=== PATIENT | female | born 2000 | race Caucasian/White ===

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

== ENCOUNTER 2022-05-03 15:09 | Emergency (ER) | payer BC ==
--- NOTE | 2022-05-03 15:35 | ER ---
Nurse's Notes [facility] Name: Rica Moreno Age: 21 yrs Sex: Female : 2000 Arrival Date: 05/03/2022 Time: 15:11 Bed 7 Private MD: Diagnosis: Localization-related (focal) (partial) idiopathic epilepsy and epileptic syndromes with seizures of localized onset Presentation: 05/03 15:22 Chief complaint: Patient states: Had a seizure today around 1330. Pt reports having ld1 seizures her whole life but is not on medication. Coronavirus screen: At this time, the client does not indicate any symptoms associated with coronavirus-19. Ebola Screen: No symptoms or risks identified at this time. Initial Sepsis Screen: Does the patient meet any 2 criteria? No. Patient's initial sepsis screen is negative. Does the patient have a suspected source of infection? No. Patient's initial sepsis screen is negative. Risk Assessment: Do you want to hurt yourself or someone else? Patient reports no desire to harm self or others. Onset of symptoms was May 03, 2022. 15:22 Method Of Arrival: Ambulatory ld1 15:22 Acuity: JACKIE 3 ld1 Triage Assessment: 15:24 General: Appears in no apparent distress. comfortable, Behavior is calm, cooperative, ld1 appropriate for age. Pain: Denies pain. EENT: No signs and/or symptoms were reported regarding the EENT system. Neuro: Level of Consciousness is awake, alert, obeys commands, Oriented to person, place, time, situation, Seizure activity reported prior to arrival. Type of seizure: petit mal seizure. Cardiovascular: Capillary refill < 3 seconds Patient's skin is warm and dry. Respiratory: Airway is patent Respiratory effort is even, unlabored. 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 - Social history:: Smoking status: Reported history of juuling and/or vaping. Patient/guardian denies using alcohol. Screenin:57 Abuse screen: Denies threats or abuse. Denies injuries from another. Nutritional jh6 screening: No deficits noted. Tuberculosis screening: No symptoms or risk factors identified. Fall Risk Gait- Weak (10 pts.). Assessment: 15:54 General: Appears in no apparent distress. comfortable, Behavior is calm, cooperative. jh6 Pain: Denies pain. Neuro: No deficits noted. Level of Consciousness is awake, alert, obeys commands, Oriented to person, place, time, situation, Operators Teacher are equal bilaterally Moves all extremities. Gait is unsteady, Speech is normal, Facial symmetry appears normal, Pupils are PERRLA, Intact Babinski is positive Reports stated that she felt fuzzy and that she is having a seizure. reports that she has seen a neurologist before and that have done EEGs but have not been able to give answers for the "seizures like activity". Pt also reports that she had gotten off of all her psych medication 6mo ago and the episodes have decreased to once a week rather then every other day. . 16:53 Reassessment: Patient and/or family updated on plan of care and expected duration. Pain jh6 level reassessed. Patient is alert, oriented x 3, equal unlabored respirations, skin warm/dry/pink. Patient denies pain at this time. Patient states symptoms have improved. Vital Signs: 15:22 BP 128 / 84; Pulse 97; Resp 18; Temp 98.1(TE); Pulse Ox 99% on R/A; Weight 74.84 kg; ld1 Height 5 ft. 4 in. (162.56 cm); Pain 0/10; 16:54 BP 129 / 79; Pulse 81; Resp 17; Temp 97.6; Pulse Ox 100% ; Pain 0/10; jh6 15:22 Body Mass Index 28.32 (74.84 kg, 162.56 cm) ld1 [place] Coma Score: 15:24 Eye Response: spontaneous(4). Verbal Response: oriented(5). Motor Response: obeys ld1 commands(6). Total: 15. ED Course: 15:11 Patient arrived in ED. mr 15:24 Triage completed. ld1 15:24 Arm band placed on right wrist. ld1 15:28 [facility] Shafer [facility]C [facility] snw 15:28 Aubrey Alfonso MD is Attending Physician. snw 15:40 Placed in gown. Bed in low position. Call light in reach. Side rails up X2. Adult w/ 6 patient. 15:42 Olya Carrillo, RN is Primary Nurse. 6 15:57 No provider procedures requiring assistance completed. 6 15:58 Seizure precautions initiated. 6 16:54 Patient did not have IV access during this emergency room visit. 6 Administered Medications: 15:54 Drug: Keppra (levETIRAcetam) 500 mg Route: PO; 6 16:51 Follow up: Response: No adverse reaction 6 Medication: 16:54 VIS not applicable for this client. 6 Outcome: 15:35 Discharge ordered by MD. w 16:54 Discharged to home ambulatory. 6 16:54 Condition: stable 16:54 Discharge instructions given to patient, friend, Instructed on discharge instructions, follow up and referral plans. Demonstrated understanding of instructions, follow-up care, medications, Prescriptions given X 1. 16:55 Patient left the ED. [facility] Signatures: Roro Shafer, FIELD FOREMAN-C FIELD FOREMAN-Csnw Selena SquiresfitzYodit godinez, RN RN ld1 Olya Carrillo, RN RN 6
--- NOTE | 2022-05-03 15:35 | EDPHYS ---
Physician Documentation [facility] Name: Rica Moreno Age: 21 yrs Sex: Female : 2000 Arrival Date: 05/03/2022 Time: 15:11 Bed 7 Private MD: MERON Physician Aubrey Alfonso HPI: 05/03 15:33 This 21 yrs old Female presents to ER via Ambulatory with complaints of Probable snw Seizure. 15:33 The patient presents after having a single isolated seizure, that lasted 60 minute(s), snw the episode(s) was witnessed, by a significant other. Character of seizure(s): Loss of consciousness: the patient did not lose consciousness, Motor activity: blank stare, Incontinence: none, Apnea: the patient did not experience apnea, Circulation: the patient did not experience evidence of pulse disturbance, Eye movements: are unknown. Seizure onset: 1 hour(s) ago. Seizure Hx: as noted. Associated injury: The patient did not suffer any apparent associated injury. Current symptoms: Currently, the patient is not experiencing any symptoms. The patient has experienced similar episodes in the past, chronically. The patient has not recently seen a physician. . 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 - Social history:: Smoking status: Reported history of juuling and/or vaping. Patient/guardian denies using alcohol. ROS: 15:31 Constitutional: Negative for fever, chills, and weight loss, Eyes: Negative for injury, snw pain, redness, and discharge, ENT: Negative for injury, pain, and discharge, Neck: Negative for injury, pain, and swelling, Cardiovascular: Negative for chest pain, palpitations, and edema, Respiratory: Negative for shortness of breath, cough, wheezing, and pleuritic chest pain, Abdomen/GI: Negative for abdominal pain, nausea, vomiting, diarrhea, and constipation, Back: Negative for injury and pain, : Negative for injury, bleeding, discharge, and swelling, MS/Extremity: Negative for injury and deformity, Skin: Negative for injury, rash, and discoloration, Psych: Negative for depression, anxiety, suicide ideation, homicidal ideation, and hallucinations. 15:31 Neuro: Positive for Petite mal "seizure" lasting one hour. Pt states she has had no changes, no illnesses. Does admit to less sleep lately. Denies . Exam: 15:28 Head/Face: Normocephalic, atraumatic. Eyes: Pupils equal round and reactive to light, snw extra-ocular motions intact. Lids and lashes normal. Conjunctiva and sclera are non-icteric and not injected. Cornea within normal limits. Periorbital areas with no swelling, redness, or edema. ENT: Nares patent. No nasal discharge, no septal abnormalities noted. Tympanic membranes are normal and external auditory canals are clear. Oropharynx with no redness, swelling, or masses, exudates, or evidence of obstruction, uvula midline. Mucous membranes moist. Neck: Trachea midline, no thyromegaly or masses palpated, and no cervical lymphadenopathy. Supple, full range of motion without nuchal rigidity, or vertebral point tenderness. No Meningismus. Chest/axilla: Normal chest wall appearance and motion. Nontender with no deformity. No lesions are appreciated. Cardiovascular: Regular rate and rhythm with a normal S1 and S2. No gallops, murmurs, or rubs. Normal PMI, no JVD. No pulse deficits. Respiratory: Lungs have equal breath sounds bilaterally, clear to auscultation and percussion. No rales, rhonchi or wheezes noted. No increased work of breathing, no retractions or nasal flaring. Abdomen/GI: Soft, non-tender, with normal bowel sounds. No distension or tympany. No guarding or rebound. No evidence of tenderness throughout. Back: No spinal tenderness. No costovertebral tenderness. Full range of motion. Skin: Warm, dry with normal turgor. Normal color with no rashes, no lesions, and no evidence of cellulitis. MS/ Extremity: Pulses equal, no cyanosis. Neurovascular intact. Full, normal range of motion. 15:28 Constitutional: The patient appears in no acute distress, alert, awake, anxious, sedate 15:28 Neuro: Exam negative for acute changes. 15:28 Psych: Behavior/mood is cooperative, anxious, Affect is calm, flat, Pt states she has had seizures "all my life" Pt has never been on medications. States she has tonic clonic and petit mal activity. Saw a neurologist remotely but not in years. States her seizures were yearly and have recently become monthly. Vital Signs: 15:22 BP 128 / 84; Pulse 97; Resp 18; Temp 98.1(TE); Pulse Ox 99% on R/A; Weight 74.84 kg; ld1 Height 5 ft. 4 in. (162.56 cm); Pain 0/10; 16:54 BP 129 / 79; Pulse 81; Resp 17; Temp 97.6; Pulse Ox 100% ; Pain 0/10; jh6 15:22 Body Mass Index 28.32 (74.84 kg, 162.56 cm) ld1 [place] Coma Score: 15:24 Eye Response: spontaneous(4). Verbal Response: oriented(5). Motor Response: obeys ld1 commands(6). Total: 15. MDM: 15:28 Patient medically screened. snw 21:39 Data reviewed: vital signs, nurses notes. Data interpreted: Pulse oximetry: on room air snw is 100 %. Interpretation: normal. Counseling: I had a detailed discussion with the patient and/or guardian regarding: the historical points, exam findings, and any diagnostic results supporting the discharge/admit diagnosis, lab results, the need for outpatient follow up, to return to the emergency department if symptoms worsen or persist or if there are any questions or concerns that arise at home. Response to treatment: the patient's symptoms have mildly improved after treatment. Special discussion: Based on the history and exam findings, there is no indication for further emergent testing or inpatient evaluation. I discussed with the patient/guardian the need to see the neurologist for further evaluation of the symptoms. I discussed with the patient/guardian the need to see the primary care provider for further evaluation of the symptoms. 05/03 15:28 Order name: Urine Culture [facility] 05/03 15:28 Order name: Urine Microscopic Only [facility] 05/03 16:29 Order name: Urine Dipstick-Ancillary; Complete Time: 16:43 EDMS Administered Medications: 15:54 Drug: Keppra (levETIRAcetam) 500 mg Route: PO; [facility] 16:51 Follow up: Response: No adverse reaction [facility] Disposition: 18:55 Co-signature as Attending Physician, Aubrey Alfonso MD I agree with the assessment and tirso plan of care. Disposition Summary: 05/03/22 15:35 Discharge Ordered Location: Home snw Condition: Stable snw Diagnosis - Localization-related (focal) (partial) idiopathic epilepsy and epileptic syndromes snw with seizures of localized onset Followup: snw - With: Emergency Department - When: As needed - Reason: Worsening of condition Followup: snw - With: Private Physician - When: 2 - 3 days - Reason: Recheck today's complaints, Continuance of care, Re-evaluation by your physician Discharge Instructions: - Discharge Summary Sheet snw - Non-Epileptic Seizures, Adult snw - Seizure, Adult snw - Managing Non-Epileptic Seizures, Adult snw Forms: - Medication Reconciliation Form snw - Thank You Letter snw - Antibiotic Education snw - Prescription Opioid Use snw - Work release form jh6 Prescriptions: - Keppra 500 mg Oral Tablet - take 1 tablet by ORAL route every 12 hours; 20 tablet; Refills: 0, Product snw Selection Permitted Signatures: Dispatcher [employer] Aubrey Hansen MD MD cha Waters, Shelly, BONE DRIER OPERATOR-C BONE DRIER OPERATOR-Csnw Yodit Swanson, RN RN ld1 Olya Carrillo, RN RN jh6
[2022-05-03] MEDS ORDERED: levETIRAcetam 500 MG TAB ONE (16:00)
[2022-05-03 16:29] LABS: Urine Blood 2+ (Negative); Urine Glucose Negative (Negative); Urine Protein Negative (Negative)
[2022-05-03 17:02] VITALS: BP 129/79; TEMP 97.6; O2SAT 100
[2022-05-03 17:24] LABS: Urine Bacteria >50 /HPF (<20)
== END 2022-05-03 16:55 | disposition home or self-care (01) ==
LOC: ER 15:09
DX: G40.009 Localization-related (focal) (partial) idiopathic epilepsy and epileptic syndromes with seizures of localized onset, not intractable, without status epilepticus (principal)
CPT/HCPCS: 81003; 81015; 87077; 87086; 87088; 87186; 99283